=== PATIENT | male | born 1985 | race Caucasian/White ===

== ENCOUNTER 2017-05-04 09:55 | Emergency (ER) | payer OTHER ==
[~2017-05-04] VITALS: Ht 175.3 cm; Wt 100.0 kg
[2017-05-04] MEDS ORDERED: KETOROLAC 60MG/2ML VIAL IM STA (11:58)
[2017-05-04 13:00] VITALS: BP 13/71
== END 2017-05-04 13:11 | disposition home or self-care (01) ==
LOC: ER 10:06
DX: S30.0XXA Contusion of lower back and pelvis, initial encounter (principal); S70.02XA Contusion of left hip, initial encounter; W19.XXXA Unspecified fall, initial encounter; Y93.89 Activity, other specified; Y92.89 Other specified places as the place of occurrence of the external cause; Y99.8 Other external cause status
CPT/HCPCS: 72100; 73502; 96372; 99284; J1885

== ENCOUNTER 2017-05-15 16:24 | Inpatient (IN) | payer SELFPAY ==
[~2017-05-15] VITALS: Ht 172.7 cm; Wt 99.8 kg
[2017-05-15] MEDS ORDERED: ONDANSETRON HCL 4MG/2ML VIAL IV STA (20:37)
[2017-05-15] MEDS ORDERED: MORPHINE SULFATE 4 MG/ML CPJ (NOT FOR IM USE) IV STA (20:37)
[2017-05-15] MEDS ORDERED: PIPERACILLIN/TAZ 3.375G PREMIX 50 ML IV ONE (20:45)
[2017-05-15] MEDS ORDERED: VANCOMYCIN 1 G PREMIX 200 ML IV ONE (20:45)
[2017-05-15 21:20] LABS: BASOPHILS % 0.4 % (0.0-2.0); EOSINOPHILS % 1.6 % (0.0-5.0); HEMATOCRIT. 31.8 % (42.0-52.0); LYMPHOCYTES % 16.2 % (20.0-50.0); MEAN CORPUSCULAR HEMOGLOBIN 30.7 pg (28.0-32.0); MEAN CORPUSCULAR VOLUME 88.3 fL (80.0-94.0); MEAN PLATELET VOLUME 8.2 fl (7.4-10.4); MONOCYTES % 9.4 % (2.0-8.0); NEUTROPHILS % 72.4 % (40.0-76.0); PLATELET 226 x1000/uL (130-400); RED CELL DISTRIBUTION WIDTH 12.7 % (11.6-14.6)
[2017-05-15 21:22] LABS: CHLORIDE 101 mEq/L (98-107)
[2017-05-15 21:25] LABS: INR 1.1; PARTIAL THROMBOPLASTIN TIME 32.5 sec (23.4-31.0); PROTHROMBIN TIME 11.4 sec (9.4-11.6)
[2017-05-15] MEDS ORDERED: POTASSIUM CHLORIDE 20MEQ TABLET SR PO ONE (22:00)
[2017-05-15] MEDS ORDERED: SODIUM CHLORIDE 0.9% 1000ML BAG (SEPSIS BOLUS) IV ONE (22:00)
[2017-05-15] MEDS ORDERED: NITROGLYCERIN 0.4MG TABLET SL SL PRN (22:15)
[2017-05-15] MEDS ORDERED: ONDANSETRON HCL 4MG/2ML VIAL IV PRN (22:15)
[2017-05-15] MEDS ORDERED: NA PHOS,M-B/NA PHOS,DI-BA ENEMA 118ML PR PRN (22:15)
[2017-05-15] MEDS ORDERED: ACETAMINOPHEN 325MG TABLET PO PRN (22:15)
[2017-05-15] MEDS ORDERED: KETOROLAC 15MG/ML VIAL IV PRN (22:15)
[2017-05-15] MEDS ORDERED: DIPHENHYDRAMINE 50MG/ML VIAL IV PRN (22:15)
[2017-05-15] MEDS ORDERED: MAGNESIUM/ALUMINUM HYDROXIDE/SIMETHICONE 30ML UDC PO PRN (22:15)
[2017-05-15] MEDS ORDERED: CLONIDINE 0.1MG TABLET PO PRN (22:15)
[2017-05-15] MEDS ORDERED: LORAZEPAM 0.5MG TABLET PO PRN (22:15)
[2017-05-15] MEDS ORDERED: IPRATROPIUM/ALBUTEROL 0.5-3(2.5)MG/3ML NEB INH PRN (22:15)
[2017-05-15] MEDS ORDERED: GUAIFENESIN 200MG/10ML SUGAR FREE UDC PO PRN (22:15)
[2017-05-15] MEDS ORDERED: DOCUSATE SODIUM 100MG CAPSULE PO PRN (22:15)
[2017-05-15] MEDS ORDERED: ZOLPIDEM TARTRATE 5MG TABLET PO PRN (22:15)
[2017-05-16 00:10] LABS: CHLORIDE 104 mEq/L (98-107)
[2017-05-16 00:15] LABS: ETHANOL BLOOD < 10 mg/dL
[2017-05-16 01:09] LABS: CLARITY URINE CLEAR (CLEAR); COLOR URINE YELLOW (YELLOW); KETONES URINE NEGATIVE (NEGATIVE); LEUKOCYTE ESTERASE URINE NEGATIVE (NEGATIVE); NITRITE URINE NEGATIVE (NEGATIVE); OCCULT BLOOD URINE NEGATIVE (NEGATIVE); PH URINE 5.5 (4.5-8.0); PROTEIN URINE NEGATIVE (NEGATIVE); SPECIFIC GRAVITY URINE 1.011 (1.005-1.030)
[2017-05-16 01:36] LABS: *AMPHETAMINES SCREEN URINE NEGATIVE (NEGATIVE); *BARBITURATES SCREEN URINE NEGATIVE (NEGATIVE); *BENZODIAZEPINES SCREEN URINE NEGATIVE (NEGATIVE); *COCAINE SCREEN URINE PRESUMTIVE POSITIVE (NEGATIVE); CANNABINOID URINE SCREEN NEGATIVE (NEGATIVE); METHADONE URINE SCREEN NEGATIVE (NEGATIVE); OPIATES URINE SCREEN PRESUMTIVE POSITIVE (NEGATIVE); PHENCYCLIDINE URINE SCREEN NEGATIVE (NEGATIVE)
[2017-05-16 04:00] VITALS: BP 132/59
[2017-05-16] MEDS ORDERED: KETOROLAC 15MG/ML VIAL IV PRN (04:45)
[2017-05-16] MEDS ORDERED: ZOLPIDEM TARTRATE 5MG TABLET PO PRN (04:45)
[2017-05-16 06:00] VITALS: BP 132/68
[2017-05-16] MEDS ORDERED: CEFAZOLIN 1000MG PREMIX 50 ML IV SCH ×2 (06:00→08:00)
[2017-05-16 08:00] VITALS: BP 105/51
[2017-05-16] MEDS ORDERED: METOPROLOL TARTRATE 25MG TABLET PO SCH ×2 (09:00)
[2017-05-16] MEDS ORDERED: POTASSIUM CHLORIDE 20MEQ/PACKET PO NR (10:00)
[2017-05-16 11:31] LABS: CHLORIDE 108 mEq/L (98-107)
[2017-05-16 12:00] VITALS: BP 101/46
[2017-05-16 14:15] VITALS: BP 105/51
[2017-05-16 16:00] VITALS: BP 109/56
== END 2017-05-16 16:00 | disposition home or self-care (01) | DRG 383 ==
LOC: ER 17:08 → 6EST 22:23 → ENRESERV 22:57 → CANRESERV 22:57 → ER 05-16 04:41
PROVIDERS: ADMIT Internal Medicine; ATTEND Internal Medicine
DX: L03.115 Cellulitis of right lower limb (principal); N17.9 Acute kidney failure, unspecified; F17.200 Nicotine dependence, unspecified, uncomplicated; R79.89 Other specified abnormal findings of blood chemistry; L03.116 Cellulitis of left lower limb
CPT/HCPCS: 36415; 71045; 76770; 80048; 80053; 80305; 81003; 83036; 83605; 85025; 85610; 85730; 87040; 87086; 93005; 93970; 96365; 96366; 96368; 96375; 99285; G0482; J0690; J1885; J2270; J2405; J2543; J3370; J7030; J7050

== ENCOUNTER 2017-07-26 16:28 | Emergency (ER) | payer SELFPAY ==
[~2017-07-26] VITALS: Ht 167.6 cm; Wt 82.0 kg
[2017-07-26] MEDS ORDERED: CEFTRIAXONE SODIUM 250 MG/VIAL IM ONE (19:30)
[2017-07-26] MEDS ORDERED: AZITHROMYCIN 500 MG TABLET PO ONE (19:30)
[2017-07-26 19:42] LABS: CLARITY URINE CLEAR (CLEAR); COLOR URINE DARK YELLOW (YELLOW); KETONES URINE 2+ (NEGATIVE); LEUKOCYTE ESTERASE URINE NEGATIVE (NEGATIVE); NITRITE URINE NEGATIVE (NEGATIVE); OCCULT BLOOD URINE NEGATIVE (NEGATIVE); PH URINE 5.5 (4.5-8.0); PROTEIN URINE 2+ (NEGATIVE); SPECIFIC GRAVITY URINE 1.036 (1.005-1.030)
[2017-07-26 20:15] VITALS: BP 121/84
== END 2017-07-26 20:21 | disposition home or self-care (01) ==
LOC: ER 17:45
DX: N45.2 Orchitis (principal); F17.200 Nicotine dependence, unspecified, uncomplicated; L72.8 Other follicular cysts of the skin and subcutaneous tissue
CPT/HCPCS: 76870; 81003; 93976; 96372; 99285; J0696; Z7610

== ENCOUNTER 2021-06-15 07:45 | Emergency (ER) | payer MEDICAID, OTHER ==
[~2021-06-15] VITALS: Ht 170.2 cm; Wt 114.0 kg
[2021-06-15 08:44] LABS: HEMATOCRIT. 46.9 % (42.0-52.0); HEMOGLOBIN. 16.2 g/dL (14.0-18.0); MEAN CORPUSCULAR VOLUME 89.8 fL (80.0-94.0); MEAN PLATELET VOLUME 8.8 fl (7.4-10.4); PLATELET 268 x1000/uL (130-400); RED BLOOD CELL COUNT 5.22 mill/uL (4.7-6.1); RED CELL DISTRIBUTION WIDTH 13.5 % (11.6-14.6)
[2021-06-15 08:45] LABS: CHLORIDE 102 mEq/L (98-107)
[2021-06-15 08:51] LABS: ETHANOL BLOOD < 10 mg/dL
[2021-06-15] MEDS ORDERED: LORAZEPAM 2MG/ML CPJ IM STA (08:53)
[2021-06-15] MEDS ORDERED: OLANZAPINE 10 MG/VIAL IM ONE (09:00)
[2021-06-15 09:58] LABS: PLATELET ESTIMATE NORMAL
[2021-06-15 13:49] VITALS: BP 119/68
== END 2021-06-15 13:53 | disposition home or self-care (01) ==
LOC: ER 07:45
DX: F15.129 Other stimulant abuse with intoxication, unspecified (principal); R00.0 Tachycardia, unspecified; D72.829 Elevated white blood cell count, unspecified; I10 Essential (primary) hypertension; E11.9 Type 2 diabetes mellitus without complications
CPT/HCPCS: 36415; 80053; 80320; 85025; 96372; 99285; J2060; J3490; G0480

== ENCOUNTER 2022-12-06 11:41 | Emergency (ER) | payer OTHER ==
[~2022-12-06] VITALS: Ht 175.3 cm; Wt 82.0 kg
[2022-12-06 12:01] VITALS: BP 111/72; PULSE 91; RESP 19; TEMP 98.3; O2SAT 99
== END 2022-12-06 23:04 | disposition left against medical advice (07) ==
LOC: ER 11:41
DX: Z53.21 Procedure and treatment not carried out due to patient leaving prior to being seen by health care provider (principal)
CPT/HCPCS: 99281

== ENCOUNTER 2022-12-15 17:05 | Emergency (ER) | payer MEDICAID, OTHER ==
[~2022-12-15] VITALS: Ht 175.3 cm; Wt 81.0 kg
[2022-12-15 17:15] VITALS: O2SAT 99
[2022-12-15] MEDS ORDERED: KETOROLAC 30MG/ML VIAL IM ONE (19:45)
[2022-12-15 19:49] LABS: BASOPHILS % 0.4 % (0.0-2.0); EOSINOPHILS % 4.3 % (0.0-5.0); HEMATOCRIT. 43.2 % (42.0-52.0); HEMOGLOBIN. 14.6 g/dL (14.0-18.0); LYMPHOCYTES % 19.8 % (20.0-50.0); MEAN CORPUSCULAR HEMOGLOBIN 30.3 pg (28.0-32.0); MEAN CORPUSCULAR HGB CONC 33.8 g/dL (31.0-37.0); MEAN CORPUSCULAR VOLUME 89.6 fL (80.0-94.0); MEAN PLATELET VOLUME 7.6 fl (7.4-10.4); MONOCYTES % 5.4 % (2.0-8.0); NEUTROPHILS % 70.1 % (40.0-76.0); PLATELET 293 x1000/uL (130-400); RED BLOOD CELL COUNT 4.83 mill/uL (4.7-6.1); RED CELL DISTRIBUTION WIDTH 13.4 % (11.6-14.6)
[2022-12-15 19:51] LABS: CHLORIDE 104 mEq/L (98-107); INDEX HEMOLYSI 1 (1-3); INDEX ICTERIC 1 (1-4); INDEX LIPEMIC 1 (1-3); POTASSIUM 4.1 mEq/L (3.5-5.1); SODIUM 137 mEq/L (136-145)
[2022-12-15 19:54] LABS: ALBUMIN 3.5 g/dL (3.4-5.0); CARBON DIOXIDE 31 mEq/L (21-32); GLUCOSE 92 mg/dL (70-105); UREA NITROGEN BLOOD 13 mg/dL (7-21)
[2022-12-15 19:58] LABS: ALANINE AMINOTRANSFERASE 29 IU/L (13-61); ASPARTATE AMINOTRANSFERASE 17 IU/L (15-37); BILIRUBIN TOTAL 0.4 mg/dL (0.1-1.0); CREATININE 0.8 mg/dL (0.6-1.3); PROTEIN TOTAL 8.2 g/dL (6.0-8.3)
[2022-12-15] MEDS ORDERED: PIPERACILLIN/TAZOBACTAM 3.375GM/50ML PREMIX IV ONE (20:00)
[2022-12-15] MEDS ORDERED: VANCOMYCIN 1G PREMIX 200 ML IV SCH (20:00)
[2022-12-15] MEDS ORDERED: PIPERACILLIN/TAZ 3.375G PREMIX 50 ML IV NR (20:15)
[2022-12-16 01:54] VITALS: BP 110/63; PULSE 69; RESP 18; TEMP 98.7
== END 2022-12-16 02:16 | disposition short-term general hospital (02) ==
LOC: ER 17:05
DX: L03.011 Cellulitis of right finger (principal); I96 Gangrene, not elsewhere classified; E11.9 Type 2 diabetes mellitus without complications; I10 Essential (primary) hypertension; F15.90 Other stimulant use, unspecified, uncomplicated
CPT/HCPCS: 80053; 83605; 85025; 87040; 36415; 73120; 96367; 96365; 96372; 99285; J1885; J2543; J3370; Z7610 ×2

== ENCOUNTER 2023-06-28 22:33 | Emergency (ER) | payer OTHER ==
[2023-06-28 22:41] VITALS: PULSE 102; RESP 16
== END 2023-06-28 23:37 | disposition left against medical advice (07) ==
LOC: ER 23:02
DX: M25.512 Pain in left shoulder (principal); Z53.21 Procedure and treatment not carried out due to patient leaving prior to being seen by health care provider
CPT/HCPCS: 99281

== ENCOUNTER 2023-06-29 01:17 | Emergency (ER) | payer MEDICAID, OTHER ==
[~2023-06-29] VITALS: Ht 167.6 cm; Wt 82.0 kg
[2023-06-29 01:30] VITALS: BP 127/81; PULSE 84; RESP 16; TEMP 98.3; O2SAT 100
[2023-06-29] MEDS: ACETAMINOPHEN 325MG TABLET PO ONE (07:54)
[2023-06-29] MEDS ORDERED: CLINDAMYCIN 600 MG in DEXTROSE 5% WATER 50 ML IV ONE (08:00)
[2023-06-29] MEDS ORDERED: CLINDAMYCIN 600MG PREMIX 50 ML IV NR (08:00)
[2023-06-29 08:02] LABS: BASOPHILS % 0.5 % (0.0-2.0); EOSINOPHILS % 3.4 % (0.0-5.0); HEMATOCRIT. 39.7 % (42.0-52.0); HEMOGLOBIN. 13.4 g/dL (14.0-18.0); LYMPHOCYTES % 25.7 % (20.0-50.0); MEAN CORPUSCULAR HEMOGLOBIN 29.7 pg (28.0-32.0); MEAN CORPUSCULAR HGB CONC 33.7 g/dL (31.0-37.0); MEAN CORPUSCULAR VOLUME 88.1 fL (80.0-94.0); MEAN PLATELET VOLUME 7.7 fl (7.4-10.4); MONOCYTES % 8.1 % (2.0-8.0); NEUTROPHILS % 62.3 % (40.0-76.0); PLATELET 343 x1000/uL (130-400); RED BLOOD CELL COUNT 4.51 mill/uL (4.7-6.1); RED CELL DISTRIBUTION WIDTH 15.3 % (11.6-14.6); WHITE BLOOD COUNT 6.2 x1000/uL (4.5-11.0)
[2023-06-29 08:41] LABS: ALBUMIN 4.7 g/dL (3.2-4.8); CALCIUM 9.4 mg/dL (8.7-10.4); CARBON DIOXIDE 29 mEq/L (21-32); CHLORIDE 105 mEq/L (98-107); CREATININE 0.9 mg/dL (0.6-1.3); GLUCOSE 91 mg/dL (70-105); POTASSIUM 4.2 mEq/L (3.5-5.1); PROTEIN TOTAL 8.4 g/dL (6.0-8.3); SODIUM 138 mEq/L (136-145); UREA NITROGEN BLOOD 14 mg/dL (9-23)
[2023-06-29 08:42] LABS: ALANINE AMINOTRANSFERASE 17 IU/L (10-49); ASPARTATE AMINOTRANSFERASE 23 IU/L (<34); BILIRUBIN TOTAL 0.5 mg/dL (0.1-1.0)
== END 2023-06-29 09:23 | disposition home or self-care (01) ==
LOC: ER 02:55
DX: S42.001A Fracture of unspecified part of right clavicle, initial encounter for closed fracture (principal); F15.10 Other stimulant abuse, uncomplicated; W18.30XA Fall on same level, unspecified, initial encounter; Y93.89 Activity, other specified; Y92.89 Other specified places as the place of occurrence of the external cause; Y99.8 Other external cause status
CPT/HCPCS: 80053; 85025; 36415; 93971; 73030; 73590; 99284; Z7610; J3490; J7060

== ENCOUNTER 2023-08-15 14:02 | Emergency (ER) | payer MEDICAID, OTHER ==
[~2023-08-15] VITALS: Ht 172.7 cm; Wt 90.7 kg
[2023-08-15 14:14] VITALS: BP 125/83; PULSE 80; RESP 16; TEMP 97.7; O2SAT 99
[2023-08-15] MEDS ORDERED: KETOROLAC 30MG/ML VIAL IV ONE (14:30)
[2023-08-15] MEDS ORDERED: AMPICILLIN SOD/SULBACTAM NA 3 G in SODIUM CHLORIDE 0.9% 100 ML IV SCH (14:30)
[2023-08-15 15:59] LABS: BASOPHILS % 0.6 % (0.0-2.0); EOSINOPHILS % 1.3 % (0.0-5.0); HEMATOCRIT. 40.1 % (42.0-52.0); HEMOGLOBIN. 13.7 g/dL (14.0-18.0); MEAN CORPUSCULAR HEMOGLOBIN 30.5 pg (28.0-32.0); MEAN CORPUSCULAR HGB CONC 34.3 g/dL (31.0-37.0); MEAN PLATELET VOLUME 8.8 fl (7.4-10.4); NEUTROPHILS % 76.1 % (40.0-76.0); PLATELET 347 x1000/uL (130-400); WHITE BLOOD COUNT 10.3 x1000/uL (4.5-11.0)
[2023-08-15 16:10] LABS: CARBON DIOXIDE 30 mEq/L (21-32); CHLORIDE 99 mEq/L (98-107); POTASSIUM 4.2 mEq/L (3.5-5.1); SODIUM 134 mEq/L (136-145)
[2023-08-15 16:13] LABS: PROTHROMBIN TIME 11.3 sec (9.6-11.0)
[2023-08-15 16:16] LABS: CREATININE 0.9 mg/dL (0.6-1.3); GLUCOSE 97 mg/dL (70-105); UREA NITROGEN BLOOD 8 mg/dL (9-23)
[2023-08-15] MEDS ORDERED: MORPHINE SULFATE 4 MG/ML INJ (FOR IV/IM USE) IV ONE (19:45)
[2023-08-15] MEDS ORDERED: AMOX1TAB16 MT (20:11)
[2023-08-15] MEDS ORDERED: IBUP-2029 MT (20:11)
== END 2023-08-15 20:24 | disposition home or self-care (01) ==
LOC: ER 14:25 → EDBEDREQ 17:39 → ER 20:24
DX: R22.1 Localized swelling, mass and lump, neck (principal); F15.90 Other stimulant use, unspecified, uncomplicated
CPT/HCPCS: 36415; 70486; 73562; 80048; 83605; 84145; 85025; 99284

== ENCOUNTER 2023-08-31 23:54 | Emergency (ER) | payer OTHER ==
[~2023-08-31] VITALS: Ht 177.8 cm; Wt 85.0 kg
[~2023-08-31 23:54] MED LIST: AMOX1TAB16 MT; IBUP-2029 MT
[2023-08-31 23:59] VITALS: RESP 16; O2SAT 98
[2023-09-01] MEDS: HYDROCODONE/ACETAMINOPHEN 5/325MG TABLET PO ONE (00:55)
[2023-09-01 01:45] VITALS: BP 140/78; PULSE 77; TEMP 97.8
== END 2023-09-01 01:56 | disposition home or self-care (01) ==
LOC: ER 23:56
DX: R22.0 Localized swelling, mass and lump, head (principal); F15.90 Other stimulant use, unspecified, uncomplicated
CPT/HCPCS: 99283